=== PATIENT | female | born 1955 | race Caucasian/White ===

== ENCOUNTER → 2017-07-01 | Outpatient (CLI) | payer BC ==
[~2017-07-01] MED LIST: AMBIEN5 MG PO; CALCIUM 600 +1 EAC8; CALCIUM PO; CENTRUM SILVER1 EAC3 PO; DIAZEPAM10 MG; EVISTA60 MG PO; LEVOTHYROXINE100 MCG PO; NORCO 10-325 T1 EACH PO; PREMARIN0.3 MG PO; VITAMIN D PO; VYVANCE PO; ZOLPIDEM TARTRA10 MG PO
--- NOTE | 2017-07-01 15:56 | Diagnostic Imaging Report ---
#[id number] - MGDXBIL #BILATERAL DIGITAL DIAGNOSTIC MAMMOGRAM WITH CAD: 07/01/2017 Comparison is made to exams dated: 12/16/2016 ultrasound, 12/02/2016 mammogram and 05/30/2015 mammogram - [facility]. Current study contains 6 films. The tissue of both breasts is heterogeneously dense. This may lower the sensitivity of mammography. Current study was also evaluated with a Computer Aided Detection (CAD) system. There are benign vascular calcifications and calcifications in both breasts. There also are benign densities in both breasts. No significant masses, calcifications, or other findings are seen in either breast. There has been no significant interval change. IMPRESSION: BENIGN There is no mammographic evidence of malignancy. A 1 year screening mammogram is recommended. The patient will be notified by letter of the results. Jin way/ash:07/01/2017 14:02:18 Sheet Metal Supervisor: Ashleigh PERAZA(R)(M), [facility] letter sent: Compared to Prior B9 Mammogram BI-RADS: 2 Benign
== END ==
LOC: MAMMO 09:49
PROVIDERS: ATTEND Internal Medicine
DX: N63.0 Unspecified lump in unspecified breast (principal)
CPT/HCPCS: G0204

== ENCOUNTER → 2018-02-28 | Outpatient (CLI) | payer BC ==
[~2018-02-28] MED LIST changes: +LIDOCAINE VISC 2% SOLN 15 ML UDC ONE; +LIDOCAINE/PRILOCAINE 2.5-2.5% KIT ONE; +MINERAL OIL/PETROLAT/GLYCERI 6OZ BTL ONE
== END ==
LOC: WCC 09:00
PROVIDERS: ATTEND Family Medicine Adult Medicine
DX: S81.802A Unspecified open wound, left lower leg, initial encounter (principal); S41.101A Unspecified open wound of right upper arm, initial encounter; I87.2 Venous insufficiency (chronic) (peripheral); I89.0 Lymphedema, not elsewhere classified; I50.9 Heart failure, unspecified; I10 Essential (primary) hypertension; X58.XXXA Exposure to other specified factors, initial encounter

== ENCOUNTER → 2018-03-03 | Outpatient (CLI) | payer BC ==
[~2018-03-03] MED LIST changes: -LIDOCAINE VISC 2% SOLN 15 ML UDC ONE; -LIDOCAINE/PRILOCAINE 2.5-2.5% KIT ONE; -MINERAL OIL/PETROLAT/GLYCERI 6OZ BTL ONE
== END ==
LOC: WCC 13:09
PROVIDERS: ATTEND Internal Medicine Infectious Disease
DX: S81.802A Unspecified open wound, left lower leg, initial encounter (principal); S41.101A Unspecified open wound of right upper arm, initial encounter; X58.XXXA Exposure to other specified factors, initial encounter; I87.2 Venous insufficiency (chronic) (peripheral); I89.0 Lymphedema, not elsewhere classified; I10 Essential (primary) hypertension; I50.9 Heart failure, unspecified

== ENCOUNTER → 2018-03-10 | Outpatient (CLI) | payer BC | LOC: WCC 01:00 | PROVIDERS: ATTEND Family Medicine Adult Medicine | DX: S81.802A Unspecified open wound, left lower leg, initial encounter (principal); S41.101A Unspecified open wound of right upper arm, initial encounter; I89.0 Lymphedema, not elsewhere classified; I87.2 Venous insufficiency (chronic) (peripheral); I10 Essential (primary) hypertension; I50.9 Heart failure, unspecified; X58.XXXA Exposure to other specified factors, initial encounter ==

== ENCOUNTER → 2018-03-14 | Outpatient (CLI) | payer BC | LOC: WCC 10:46 | PROVIDERS: ATTEND Family Medicine Adult Medicine | DX: S81.802A Unspecified open wound, left lower leg, initial encounter (principal); S41.101A Unspecified open wound of right upper arm, initial encounter; I87.2 Venous insufficiency (chronic) (peripheral); I89.0 Lymphedema, not elsewhere classified; I10 Essential (primary) hypertension; I50.9 Heart failure, unspecified; X58.XXXA Exposure to other specified factors, initial encounter ==

== ENCOUNTER → 2018-03-16 | Outpatient (CLI) | payer BC | LOC: WCC 12:05 | PROVIDERS: ATTEND Family Medicine Adult Medicine | DX: S81.802A Unspecified open wound, left lower leg, initial encounter (principal); S41.101A Unspecified open wound of right upper arm, initial encounter; I87.2 Venous insufficiency (chronic) (peripheral); I89.0 Lymphedema, not elsewhere classified; I10 Essential (primary) hypertension; I50.9 Heart failure, unspecified; X58.XXXA Exposure to other specified factors, initial encounter ==

== ENCOUNTER → 2018-03-21 | Outpatient (CLI) | payer BC ==
[~2018-03-21] MED LIST changes: +LIDOCAINE/PRILOCAINE 2.5-2.5% KIT ONE
== END ==
LOC: WCC 13:44
PROVIDERS: ATTEND Family Medicine Adult Medicine
DX: S81.802A Unspecified open wound, left lower leg, initial encounter (principal); S41.101A Unspecified open wound of right upper arm, initial encounter; I89.0 Lymphedema, not elsewhere classified; I87.2 Venous insufficiency (chronic) (peripheral); I10 Essential (primary) hypertension; I50.9 Heart failure, unspecified; X58.XXXA Exposure to other specified factors, initial encounter

== ENCOUNTER → 2018-03-24 | Outpatient (CLI) | payer BC ==
[~2018-03-24] MED LIST changes: -LIDOCAINE/PRILOCAINE 2.5-2.5% KIT ONE
== END ==
LOC: WCC 13:28
PROVIDERS: ATTEND Family Medicine Adult Medicine
DX: S81.802A Unspecified open wound, left lower leg, initial encounter (principal); S41.101A Unspecified open wound of right upper arm, initial encounter; I89.0 Lymphedema, not elsewhere classified; I87.2 Venous insufficiency (chronic) (peripheral); I10 Essential (primary) hypertension; I50.9 Heart failure, unspecified; X58.XXXA Exposure to other specified factors, initial encounter

== ENCOUNTER → 2018-04-04 | Outpatient (CLI) | payer BC | LOC: WCC 04-03 16:29 | PROVIDERS: ATTEND Family Medicine Adult Medicine | DX: S81.802A Unspecified open wound, left lower leg, initial encounter (principal); S41.101A Unspecified open wound of right upper arm, initial encounter; R60.0 Localized edema; I89.0 Lymphedema, not elsewhere classified; I87.2 Venous insufficiency (chronic) (peripheral); I10 Essential (primary) hypertension; I50.9 Heart failure, unspecified; X58.XXXA Exposure to other specified factors, initial encounter ==

== ENCOUNTER → 2018-04-06 | Outpatient (CLI) | payer BC | LOC: WCC 14:10 | PROVIDERS: ATTEND Family Medicine Adult Medicine | DX: S81.802A Unspecified open wound, left lower leg, initial encounter (principal); S41.101A Unspecified open wound of right upper arm, initial encounter; I89.0 Lymphedema, not elsewhere classified; R60.0 Localized edema; I87.2 Venous insufficiency (chronic) (peripheral); I10 Essential (primary) hypertension; I50.9 Heart failure, unspecified; X58.XXXA Exposure to other specified factors, initial encounter ==

== ENCOUNTER → 2018-04-11 | Outpatient (CLI) | payer BC | LOC: WCC 11:04 | PROVIDERS: ATTEND Family Medicine Adult Medicine | DX: S81.802A Unspecified open wound, left lower leg, initial encounter (principal); S41.101A Unspecified open wound of right upper arm, initial encounter; I89.0 Lymphedema, not elsewhere classified; R60.0 Localized edema; I87.2 Venous insufficiency (chronic) (peripheral); I10 Essential (primary) hypertension; I50.9 Heart failure, unspecified; X58.XXXA Exposure to other specified factors, initial encounter ==

== ENCOUNTER → 2018-04-13 | Outpatient (CLI) | payer BC | LOC: WCC 12:49 | PROVIDERS: ATTEND Family Medicine Adult Medicine | DX: S81.802A Unspecified open wound, left lower leg, initial encounter (principal); S41.101A Unspecified open wound of right upper arm, initial encounter; R60.0 Localized edema; I89.0 Lymphedema, not elsewhere classified; I87.2 Venous insufficiency (chronic) (peripheral); I10 Essential (primary) hypertension; I50.9 Heart failure, unspecified; X58.XXXA Exposure to other specified factors, initial encounter ==

== ENCOUNTER → 2018-04-20 | Outpatient (CLI) | payer BC ==
[~2018-04-20] MED LIST changes: +LIDOCAINE/PRILOCAINE 2.5-2.5% KIT ONE
== END ==
LOC: WCC 13:52
PROVIDERS: ATTEND Family Medicine Adult Medicine
DX: S81.802A Unspecified open wound, left lower leg, initial encounter (principal); S41.101A Unspecified open wound of right upper arm, initial encounter; R60.0 Localized edema; I87.2 Venous insufficiency (chronic) (peripheral); I89.0 Lymphedema, not elsewhere classified; I10 Essential (primary) hypertension; I50.9 Heart failure, unspecified; X58.XXXA Exposure to other specified factors, initial encounter

== ENCOUNTER → 2018-04-27 | Outpatient (CLI) | payer BC ==
[~2018-04-27] MED LIST changes: -LIDOCAINE/PRILOCAINE 2.5-2.5% KIT ONE
== END ==
LOC: WCC 11:18
PROVIDERS: ATTEND Family Medicine Adult Medicine
DX: S81.802A Unspecified open wound, left lower leg, initial encounter (principal); S41.101A Unspecified open wound of right upper arm, initial encounter; I87.2 Venous insufficiency (chronic) (peripheral); R60.0 Localized edema; I89.0 Lymphedema, not elsewhere classified; I10 Essential (primary) hypertension; I50.9 Heart failure, unspecified; X58.XXXA Exposure to other specified factors, initial encounter

== ENCOUNTER → 2018-05-11 | Outpatient (CLI) | payer BC ==
--- NOTE | 2018-05-11 14:24 | Diagnostic Imaging Report ---
Exam: Bone mineral density study. History: Osteopenia. Comparison: None Discussion: Evaluation of the left hip and lumbar spine was performed utilizing DEXA Hologic bone densitometer. The study is technically adequate. Left hip total bone mineral density: 0.676gm/cm2, T-score is -2.2, Z-score is -1.2. Left hip femoral neck bone mineral density: 0.638gm/cm2, T-score is -1.9, Z-score is -0.6. Lumbar spine total bone mineral density:1.014gm/cm2, T-score is-0.3, Z-score is 1.2. Impression: 1. Decreased bone mineral density of the left hip, fracture risk is increased. 2. Normal bone mineral density of the lumbar spine, fracture risk is not increased. Signed by: Dr. Jany Cooper M.D. on 05/11/2018 2:21 PM
== END ==
LOC: MAMMO 13:29
PROVIDERS: ATTEND Internal Medicine Endocrinology, Diabetes & Metabolism
DX: M81.0 Age-related osteoporosis without current pathological fracture (principal)
CPT/HCPCS: 77080

== ENCOUNTER → 2018-05-11 | Outpatient (CLI) | payer BC | LOC: WCC 11:15 | PROVIDERS: ATTEND Family Medicine Adult Medicine | DX: S41.101A Unspecified open wound of right upper arm, initial encounter (principal); S81.802A Unspecified open wound, left lower leg, initial encounter; I87.2 Venous insufficiency (chronic) (peripheral); I89.0 Lymphedema, not elsewhere classified; R60.0 Localized edema; I10 Essential (primary) hypertension; I50.9 Heart failure, unspecified; X58.XXXA Exposure to other specified factors, initial encounter ==

== ENCOUNTER → 2018-06-23 | Outpatient (CLI) | payer BC ==
--- NOTE | 2018-07-04 08:49 | Diagnostic Imaging Report ---
#[id number] - MGSCRBIL #BILATERAL DIGITAL SCREENING MAMMOGRAM WITH CAD: 06/23/2018 CLINICAL: Routine screening. Comparison is made to exams dated: 07/01/2017 mammogram, 12/02/2016 mammogram and 05/30/2015 mammogram - [facility]. Current study contains 5 films. The tissue of both breasts is heterogeneously dense. This may lower the sensitivity of mammography. Current study was also evaluated with a Computer Aided Detection (CAD) system. There are benign vascular calcifications and calcifications in both breasts. There also are benign densities in both breasts. No significant masses, calcifications, or other findings are seen in either breast. There has been no significant interval change. IMPRESSION: BENIGN There is no mammographic evidence of malignancy. A 1 year screening mammogram is recommended. The patient will be notified by letter of the results. Jin Desai Jr., D.O. cw/:07/03/2018 14:25:00 Converting Operator: Sivan PERAZA(R)(M), [facility] letter sent: Compared to Prior B9 Mammogram BI-RADS: 2 Benign
== END ==
LOC: MAMMO 11:56
PROVIDERS: ATTEND Internal Medicine
DX: Z12.31 Encounter for screening mammogram for malignant neoplasm of breast (principal)
CPT/HCPCS: 77067

== ENCOUNTER → 2020-01-11 | Outpatient (CLI) | payer BC ==
[~2020-01-11] MED LIST changes: +LIDOCAINE/PRILOCAINE 2.5-2.5% KIT ONE; +MINERAL OIL/PETROLAT/GLYCERI 6OZ BTL ONE
== END ==
LOC: WCC 14:00
PROVIDERS: ATTEND Family Medicine Adult Medicine
DX: S81.801A Unspecified open wound, right lower leg, initial encounter (principal); S41.101A Unspecified open wound of right upper arm, initial encounter; R60.0 Localized edema; I89.0 Lymphedema, not elsewhere classified; I87.2 Venous insufficiency (chronic) (peripheral); I10 Essential (primary) hypertension; I50.9 Heart failure, unspecified; F32.9 Major depressive disorder, single episode, unspecified; F41.9 Anxiety disorder, unspecified; F90.9 Attention-deficit hyperactivity disorder, unspecified type; M79.7 Fibromyalgia; W45.8XXA Other foreign body or object entering through skin, initial encounter; X58.XXXA Exposure to other specified factors, initial encounter

== ENCOUNTER → 2020-01-14 | Outpatient (CLI) | payer BC ==
[~2020-01-14] MED LIST changes: -LIDOCAINE/PRILOCAINE 2.5-2.5% KIT ONE; -MINERAL OIL/PETROLAT/GLYCERI 6OZ BTL ONE
== END ==
LOC: WCC 13:15
PROVIDERS: ATTEND Family Medicine Adult Medicine
DX: S81.801A Unspecified open wound, right lower leg, initial encounter (principal); S41.101A Unspecified open wound of right upper arm, initial encounter; I89.0 Lymphedema, not elsewhere classified; I87.2 Venous insufficiency (chronic) (peripheral); R60.0 Localized edema; I10 Essential (primary) hypertension; W45.8XXA Other foreign body or object entering through skin, initial encounter; X58.XXXA Exposure to other specified factors, initial encounter; M79.7 Fibromyalgia; I50.9 Heart failure, unspecified; F90.9 Attention-deficit hyperactivity disorder, unspecified type; F41.9 Anxiety disorder, unspecified; F32.9 Major depressive disorder, single episode, unspecified

== ENCOUNTER → 2020-01-17 | Outpatient (CLI) | payer BC | LOC: WCC 11:11 | PROVIDERS: ATTEND Family Medicine Adult Medicine | DX: S81.801A Unspecified open wound, right lower leg, initial encounter (principal); S41.101A Unspecified open wound of right upper arm, initial encounter; I89.0 Lymphedema, not elsewhere classified; R60.0 Localized edema; I87.2 Venous insufficiency (chronic) (peripheral); I10 Essential (primary) hypertension; F41.9 Anxiety disorder, unspecified; I50.9 Heart failure, unspecified; F32.9 Major depressive disorder, single episode, unspecified; F90.9 Attention-deficit hyperactivity disorder, unspecified type; M79.7 Fibromyalgia; W45.8XXA Other foreign body or object entering through skin, initial encounter; X58.XXXA Exposure to other specified factors, initial encounter ==

== ENCOUNTER → 2020-01-21 | Outpatient (CLI) | payer BC | LOC: WCC 10:41 | PROVIDERS: ATTEND Family Medicine Adult Medicine | DX: S81.801A Unspecified open wound, right lower leg, initial encounter (principal); S41.101A Unspecified open wound of right upper arm, initial encounter; R60.0 Localized edema; I87.2 Venous insufficiency (chronic) (peripheral); W45.8XXA Other foreign body or object entering through skin, initial encounter; I10 Essential (primary) hypertension; X58.XXXA Exposure to other specified factors, initial encounter; M79.7 Fibromyalgia; F41.9 Anxiety disorder, unspecified; F90.9 Attention-deficit hyperactivity disorder, unspecified type; F32.9 Major depressive disorder, single episode, unspecified ==

== ENCOUNTER → 2020-01-24 | Outpatient (CLI) | payer BC | LOC: WCC 12:37 | PROVIDERS: ATTEND Family Medicine Adult Medicine | DX: S81.801A Unspecified open wound, right lower leg, initial encounter (principal); S41.101A Unspecified open wound of right upper arm, initial encounter; I87.2 Venous insufficiency (chronic) (peripheral); R60.0 Localized edema; I89.0 Lymphedema, not elsewhere classified; I10 Essential (primary) hypertension; I50.9 Heart failure, unspecified; F32.9 Major depressive disorder, single episode, unspecified; F41.9 Anxiety disorder, unspecified; F90.9 Attention-deficit hyperactivity disorder, unspecified type; M79.7 Fibromyalgia; W45.8XXA Other foreign body or object entering through skin, initial encounter; X58.XXXA Exposure to other specified factors, initial encounter ==

== ENCOUNTER → 2020-02-12 | Outpatient (CLI) | payer BC | LOC: WCC 13:14 | PROVIDERS: ATTEND Family Medicine Adult Medicine | DX: S81.801A Unspecified open wound, right lower leg, initial encounter (principal); S41.101A Unspecified open wound of right upper arm, initial encounter; R60.0 Localized edema; I89.0 Lymphedema, not elsewhere classified; I87.2 Venous insufficiency (chronic) (peripheral); I10 Essential (primary) hypertension; I50.9 Heart failure, unspecified; M79.7 Fibromyalgia; F32.9 Major depressive disorder, single episode, unspecified; F41.9 Anxiety disorder, unspecified; F90.9 Attention-deficit hyperactivity disorder, unspecified type; W45.8XXA Other foreign body or object entering through skin, initial encounter; X58.XXXA Exposure to other specified factors, initial encounter ==

== ENCOUNTER → 2020-02-14 | Outpatient (CLI) | payer BC | LOC: WCC 12:53 | PROVIDERS: ATTEND Family Medicine Adult Medicine | DX: S81.801A Unspecified open wound, right lower leg, initial encounter (principal); S41.101A Unspecified open wound of right upper arm, initial encounter; I87.2 Venous insufficiency (chronic) (peripheral); R60.0 Localized edema; I89.0 Lymphedema, not elsewhere classified; I10 Essential (primary) hypertension; I50.9 Heart failure, unspecified; M79.7 Fibromyalgia; F90.9 Attention-deficit hyperactivity disorder, unspecified type; F41.9 Anxiety disorder, unspecified; F32.9 Major depressive disorder, single episode, unspecified; W45.8XXA Other foreign body or object entering through skin, initial encounter; X58.XXXA Exposure to other specified factors, initial encounter ==

== ENCOUNTER → 2020-02-21 | Outpatient (CLI) | payer BC ==
[~2020-02-21] MED LIST changes: +LIDOCAINE VISC 2% SOLN 15 ML UDC ONE; +LIDOCAINE/PRILOCAINE 2.5-2.5% KIT ONE; +MINERAL OIL/PETROLAT/GLYCERI 6OZ BTL ONE
== END ==
LOC: WCC 12:54
PROVIDERS: ATTEND Family Medicine Adult Medicine
DX: S41.101A Unspecified open wound of right upper arm, initial encounter (principal); S81.801A Unspecified open wound, right lower leg, initial encounter; R60.0 Localized edema; I87.2 Venous insufficiency (chronic) (peripheral); I89.0 Lymphedema, not elsewhere classified; B96.89 Other specified bacterial agents as the cause of diseases classified elsewhere; I50.9 Heart failure, unspecified; I10 Essential (primary) hypertension; F32.9 Major depressive disorder, single episode, unspecified; F41.9 Anxiety disorder, unspecified; F90.9 Attention-deficit hyperactivity disorder, unspecified type; M79.7 Fibromyalgia; W45.8XXA Other foreign body or object entering through skin, initial encounter; X58.XXXA Exposure to other specified factors, initial encounter
CPT/HCPCS: 87071; 87075; 87205

== ENCOUNTER → 2020-02-26 | Outpatient (CLI) | payer BC ==
[~2020-02-26] MED LIST changes: -LIDOCAINE VISC 2% SOLN 15 ML UDC ONE; -LIDOCAINE/PRILOCAINE 2.5-2.5% KIT ONE; -MINERAL OIL/PETROLAT/GLYCERI 6OZ BTL ONE
== END ==
LOC: WCC 14:52
PROVIDERS: ATTEND Family Medicine Adult Medicine
DX: S41.101A Unspecified open wound of right upper arm, initial encounter (principal); S81.801A Unspecified open wound, right lower leg, initial encounter; I87.2 Venous insufficiency (chronic) (peripheral); I89.0 Lymphedema, not elsewhere classified; R60.0 Localized edema; I10 Essential (primary) hypertension; B96.89 Other specified bacterial agents as the cause of diseases classified elsewhere; M79.7 Fibromyalgia; I50.9 Heart failure, unspecified; F90.9 Attention-deficit hyperactivity disorder, unspecified type; F41.9 Anxiety disorder, unspecified; F32.9 Major depressive disorder, single episode, unspecified; W45.8XXA Other foreign body or object entering through skin, initial encounter; X58.XXXA Exposure to other specified factors, initial encounter
CPT/HCPCS: 87071; 87075; 87205

== ENCOUNTER → 2020-02-28 | Outpatient (CLI) | payer BC | LOC: WCC 14:14 | PROVIDERS: ATTEND Family Medicine Adult Medicine | DX: S41.101A Unspecified open wound of right upper arm, initial encounter (principal); S81.801A Unspecified open wound, right lower leg, initial encounter; R60.0 Localized edema; I87.2 Venous insufficiency (chronic) (peripheral); I89.0 Lymphedema, not elsewhere classified; I50.9 Heart failure, unspecified; I10 Essential (primary) hypertension; M79.7 Fibromyalgia; B96.89 Other specified bacterial agents as the cause of diseases classified elsewhere; F32.9 Major depressive disorder, single episode, unspecified; F41.9 Anxiety disorder, unspecified; F90.9 Attention-deficit hyperactivity disorder, unspecified type; W45.8XXA Other foreign body or object entering through skin, initial encounter; X58.XXXA Exposure to other specified factors, initial encounter ==

== ENCOUNTER → 2020-03-04 | Outpatient (CLI) | payer BC | LOC: WCC 11:17 | PROVIDERS: ATTEND Family Medicine Adult Medicine | DX: S81.801A Unspecified open wound, right lower leg, initial encounter (principal); S41.101A Unspecified open wound of right upper arm, initial encounter; I87.2 Venous insufficiency (chronic) (peripheral); R60.0 Localized edema; I89.0 Lymphedema, not elsewhere classified; I10 Essential (primary) hypertension; I50.9 Heart failure, unspecified; F41.9 Anxiety disorder, unspecified; M79.7 Fibromyalgia; F32.9 Major depressive disorder, single episode, unspecified; F90.9 Attention-deficit hyperactivity disorder, unspecified type; W45.8XXA Other foreign body or object entering through skin, initial encounter; X58.XXXA Exposure to other specified factors, initial encounter ==

== ENCOUNTER → 2020-03-06 | Outpatient (CLI) | payer BC | LOC: WCC 13:28 | PROVIDERS: ATTEND Family Medicine Adult Medicine | DX: S81.801A Unspecified open wound, right lower leg, initial encounter (principal); S41.101A Unspecified open wound of right upper arm, initial encounter; I87.2 Venous insufficiency (chronic) (peripheral); R60.0 Localized edema; I89.0 Lymphedema, not elsewhere classified; I50.9 Heart failure, unspecified; I10 Essential (primary) hypertension; F32.9 Major depressive disorder, single episode, unspecified; F41.9 Anxiety disorder, unspecified; F90.9 Attention-deficit hyperactivity disorder, unspecified type; M79.7 Fibromyalgia; W45.8XXA Other foreign body or object entering through skin, initial encounter; X58.XXXA Exposure to other specified factors, initial encounter ==

== ENCOUNTER → 2020-03-11 | Outpatient (CLI) | payer BC | LOC: WCC 15:23 | PROVIDERS: ATTEND Family Medicine Adult Medicine | DX: S81.801A Unspecified open wound, right lower leg, initial encounter (principal); R60.0 Localized edema; I87.2 Venous insufficiency (chronic) (peripheral); I89.0 Lymphedema, not elsewhere classified; I10 Essential (primary) hypertension; M79.7 Fibromyalgia; I50.9 Heart failure, unspecified; F90.9 Attention-deficit hyperactivity disorder, unspecified type; F41.9 Anxiety disorder, unspecified; F32.9 Major depressive disorder, single episode, unspecified; W45.8XXA Other foreign body or object entering through skin, initial encounter; X58.XXXA Exposure to other specified factors, initial encounter ==

== ENCOUNTER → 2020-03-18 | Outpatient (CLI) | payer BC | LOC: WCC 11:38 | PROVIDERS: ATTEND Family Medicine Adult Medicine | DX: S81.801A Unspecified open wound, right lower leg, initial encounter (principal); S41.101A Unspecified open wound of right upper arm, initial encounter; R60.0 Localized edema; I87.2 Venous insufficiency (chronic) (peripheral); I89.0 Lymphedema, not elsewhere classified; I10 Essential (primary) hypertension; I50.9 Heart failure, unspecified; F32.9 Major depressive disorder, single episode, unspecified; F41.9 Anxiety disorder, unspecified; F90.9 Attention-deficit hyperactivity disorder, unspecified type; M79.7 Fibromyalgia; W45.8XXA Other foreign body or object entering through skin, initial encounter; X58.XXXA Exposure to other specified factors, initial encounter ==

== ENCOUNTER → 2020-03-25 | Outpatient (CLI) | payer BC | LOC: WCC 14:43 | PROVIDERS: ATTEND Family Medicine Adult Medicine | DX: S81.801A Unspecified open wound, right lower leg, initial encounter (principal); S41.101A Unspecified open wound of right upper arm, initial encounter; R60.0 Localized edema; I87.2 Venous insufficiency (chronic) (peripheral); I89.0 Lymphedema, not elsewhere classified; I10 Essential (primary) hypertension; I50.9 Heart failure, unspecified; M79.7 Fibromyalgia; F32.9 Major depressive disorder, single episode, unspecified; F41.9 Anxiety disorder, unspecified; F90.9 Attention-deficit hyperactivity disorder, unspecified type; W45.8XXA Other foreign body or object entering through skin, initial encounter; X58.XXXA Exposure to other specified factors, initial encounter ==

== ENCOUNTER → 2020-04-01 | Outpatient (CLI) | payer BC | LOC: WCC 09:00 | PROVIDERS: ATTEND Family Medicine Adult Medicine | DX: S41.101A Unspecified open wound of right upper arm, initial encounter (principal); S81.801A Unspecified open wound, right lower leg, initial encounter; R60.0 Localized edema; I87.2 Venous insufficiency (chronic) (peripheral); I89.0 Lymphedema, not elsewhere classified; I10 Essential (primary) hypertension; I50.9 Heart failure, unspecified; M79.7 Fibromyalgia; F32.9 Major depressive disorder, single episode, unspecified; F41.9 Anxiety disorder, unspecified; F90.9 Attention-deficit hyperactivity disorder, unspecified type; W45.8XXA Other foreign body or object entering through skin, initial encounter; X58.XXXA Exposure to other specified factors, initial encounter ==

== ENCOUNTER → 2020-04-08 | Outpatient (CLI) | payer BC | LOC: WCC 11:36 | PROVIDERS: ATTEND Family Medicine Adult Medicine | DX: S81.801A Unspecified open wound, right lower leg, initial encounter (principal); S41.101A Unspecified open wound of right upper arm, initial encounter; R60.0 Localized edema; I87.2 Venous insufficiency (chronic) (peripheral); I89.0 Lymphedema, not elsewhere classified; I50.9 Heart failure, unspecified; I10 Essential (primary) hypertension; M79.7 Fibromyalgia; F32.9 Major depressive disorder, single episode, unspecified; F41.9 Anxiety disorder, unspecified; F90.9 Attention-deficit hyperactivity disorder, unspecified type; W45.8XXA Other foreign body or object entering through skin, initial encounter; X58.XXXA Exposure to other specified factors, initial encounter ==

== ENCOUNTER → 2020-04-15 | Outpatient (CLI) | payer BC | LOC: WCC 10:09 | PROVIDERS: ATTEND Family Medicine Adult Medicine | DX: S41.101A Unspecified open wound of right upper arm, initial encounter (principal); S81.801A Unspecified open wound, right lower leg, initial encounter; R60.0 Localized edema; I87.2 Venous insufficiency (chronic) (peripheral); I89.0 Lymphedema, not elsewhere classified; I10 Essential (primary) hypertension; I50.9 Heart failure, unspecified; F41.9 Anxiety disorder, unspecified; F32.9 Major depressive disorder, single episode, unspecified; F90.9 Attention-deficit hyperactivity disorder, unspecified type; M79.7 Fibromyalgia; W45.8XXA Other foreign body or object entering through skin, initial encounter; X58.XXXA Exposure to other specified factors, initial encounter ==

== ENCOUNTER → 2020-04-22 | Outpatient (CLI) | payer BC ==
[~2020-04-22] MED LIST changes: +LIDOCAINE/PRILOCAINE 2.5-2.5% KIT ONE
== END ==
LOC: WCC 13:56
PROVIDERS: ATTEND Family Medicine Adult Medicine
DX: S81.801A Unspecified open wound, right lower leg, initial encounter (principal); S41.101A Unspecified open wound of right upper arm, initial encounter; I87.2 Venous insufficiency (chronic) (peripheral); I89.0 Lymphedema, not elsewhere classified; R60.0 Localized edema; I10 Essential (primary) hypertension; I50.9 Heart failure, unspecified; F32.9 Major depressive disorder, single episode, unspecified; F41.9 Anxiety disorder, unspecified; F90.9 Attention-deficit hyperactivity disorder, unspecified type; M79.7 Fibromyalgia; W45.8XXA Other foreign body or object entering through skin, initial encounter; X58.XXXA Exposure to other specified factors, initial encounter

== ENCOUNTER → 2020-04-29 | Outpatient (CLI) | payer BC ==
[~2020-04-29] MED LIST changes: -LIDOCAINE/PRILOCAINE 2.5-2.5% KIT ONE
== END ==
LOC: WCC 11:24
PROVIDERS: ATTEND Family Medicine Adult Medicine
DX: S41.101A Unspecified open wound of right upper arm, initial encounter (principal); S81.801A Unspecified open wound, right lower leg, initial encounter; R60.0 Localized edema; I89.0 Lymphedema, not elsewhere classified; I87.2 Venous insufficiency (chronic) (peripheral); I10 Essential (primary) hypertension; I50.9 Heart failure, unspecified; F32.9 Major depressive disorder, single episode, unspecified; F41.9 Anxiety disorder, unspecified; F90.9 Attention-deficit hyperactivity disorder, unspecified type; M79.7 Fibromyalgia; W45.8XXA Other foreign body or object entering through skin, initial encounter; X58.XXXA Exposure to other specified factors, initial encounter

== ENCOUNTER → 2020-06-24 | Outpatient (CLI) | payer BC | LOC: MAMMO 13:42 | PROVIDERS: ATTEND Internal Medicine | DX: Z12.31 Encounter for screening mammogram for malignant neoplasm of breast (principal) | CPT/HCPCS: 77067 ==

== ENCOUNTER → 2021-06-22 | Outpatient (CLI) | payer BC | LOC: RAD 10:32 | PROVIDERS: ATTEND Internal Medicine | DX: Z12.31 Encounter for screening mammogram for malignant neoplasm of breast (principal) | CPT/HCPCS: 77067 ==

== ENCOUNTER → 2022-09-24 | Outpatient (CLI) | payer BC | LOC: RAD 12:35 | PROVIDERS: ATTEND Internal Medicine | DX: R60.9 Edema, unspecified (principal) | CPT/HCPCS: 93971 ==

== ENCOUNTER 2022-10-25 15:53 | Emergency (ER) | payer BC ==
[~2022-10-25] VITALS: Ht 170.2 cm; Wt 88.0 kg
[2022-10-25] MEDS ORDERED: SODIUM CHLORIDE FLUSH 10 ML SYR IV PRN (16:30)
[2022-10-25 16:52] LABS: BASOPHILS # (AUTO) 0.1 (0.0-0.1); BASOPHILS % 0.8 % (0.0-1.0); EOSINOPHILS # (AUTO) 0.3 (0.0-0.4); EOSINOPHILS % 4.7 % (0.0-6.0); HEMATOCRIT 41.9 % (34.2-44.1); HEMOGLOBIN 13.2 g/dL (12.0-16.0); LYMPHOCYTES % 47.9 % (18.0-39.1); MEAN CORPUSCULAR HEMOGLOBIN 31.3 pg (28-32); MEAN CORPUSCULAR HGB CONC 31.5 g/dL (31-35); MEAN CORPUSCULAR VOLUME 99.3 fL (81-99); MONOCYTES # (AUTO) 0.4 (0.2-0.8); MONOCYTES % 6.6 % (4.4-11.3); NEUTROPHILS # (AUTO) 2.5 (2.1-6.9); NEUTROPHILS % 39.8 % (38.7-80.0); PLATELET COUNT 172 x10e3/uL (140-360); RED BLOOD COUNT 4.22 x10e6/uL (3.6-5.1); RED CELL DISTRIBUTION WIDTH 13.3 % (11.7-14.4)
[2022-10-25 17:24] LABS: INR 1.01; PARTIAL THROMBOPLASTIN TIME 25.3 seconds (23.8-35.5); PROTHROMBIN TIME 13.8 seconds (11.9-14.5)
[2022-10-25 17:31] LABS: ALANINE AMINOTRANSFERASE 21 IU/L (0-55); ALBUMIN 3.1 g/dL (3.5-5.0); ALKALINE PHOSPHATASE 76 IU/L (40-150); ANION GAP 14.4 mmol/L (8-16); BLOOD UREA NITROGEN 16 mg/dL (7-26); BUN/CREATININE RATIO 17 (6-25); CALCIUM 8.9 mg/dL (8.4-10.2); CARBON DIOXIDE 24 mmol/L (22-29); CHLORIDE 108 mmol/L (98-107); CREATININE, SERUM 0.93 mg/dL (0.57-1.11); GLUCOSE 156 mg/dL (74-118); POTASSIUM 4.4 mmol/L (3.5-5.1); SODIUM 142 mmol/L (136-145)
[2022-10-25] MEDS ORDERED: SODIUM CHLORIDE 0.9% 100 ML ONE (17:36)
[2022-10-25] MEDS ORDERED: IOPAMIDOL 370 MG/ML 100 ML INFUS..BTL INJ ONE (17:36)
[2022-10-25 19:11] LABS: CLARITY,URINE CLEAR (CLEAR); COLOR,URINE YELLOW (YELLOW); KETONES,URINE NEGATIVE (NEGATIVE); LEUKOCYTE ESTERASE ,URINE SMALL (NEGATIVE); NITRITE,URINE NEGATIVE (NEGATIVE); PROTEIN,URINE DIPSTICK NEGATIVE (NEGATIVE); URINE UROBILINOGEN 0.2 mg/dL (0.2 - 1)
[2022-10-25 19:19] LABS: BACTERIA,URINE MODERATE /HPF; EPITHELIAL CELLS,URINE MODERATE /LPF; RBC,URINE 0-5 /HPF (0-5)
[2022-10-25] MEDS ORDERED: ASPIRIN 325 MG TAB PO ONE (22:00)
[2022-10-25 23:21] VITALS: O2SAT 99
== END 2022-10-25 23:59 | disposition other institution (70) ==
LOC: ER 16:07
DX: I69.328 Other speech and language deficits following cerebral infarction (principal); M79.89 Other specified soft tissue disorders; I50.9 Heart failure, unspecified; E03.9 Hypothyroidism, unspecified; Z20.822 Contact with and (suspected) exposure to COVID-19; Z95.810 Presence of automatic (implantable) cardiac defibrillator
CPT/HCPCS: 0223U; 36415; 70496; 70498; 71045; 80053; 81001; 83880; 84484; 85025; 85610; 85730; 93005; 94760; 99284; J7050; Q9967; U0002

== ENCOUNTER → 2023-06-15 | Outpatient (REF) | payer BC | LOC: MAMMO 14:34 | PROVIDERS: ATTEND Internal Medicine | DX: Z12.31 Encounter for screening mammogram for malignant neoplasm of breast (principal) | CPT/HCPCS: 77067 ==

== ENCOUNTER → 2024-06-22 | Outpatient (REF) | payer BC | LOC: MAMMO 10:23 | PROVIDERS: ATTEND Internal Medicine | DX: Z12.31 Encounter for screening mammogram for malignant neoplasm of breast (principal) | CPT/HCPCS: 77067 ==

== ENCOUNTER → 2024-09-25 | Outpatient (REF) | payer BC | LOC: CT 15:38 | PROVIDERS: ATTEND Internal Medicine | DX: M79.641 Pain in right hand (principal) ==